=== PATIENT | female | born 1985 | race Caucasian/White ===

== ENCOUNTER 2023-08-28 22:21 | Emergency (ER) | payer SELFPAY ==
[~2023-08-28] VITALS: Ht 165.1 cm; Wt 80.0 kg
[2023-08-28] MEDS ORDERED: ACETAMINOPHEN 325MG TABLET PO ONE (22:45)
[2023-08-28 22:50] VITALS: PULSE 88; O2SAT 98
[2023-08-29 00:15] VITALS: BP 186/74; RESP 18
[2023-08-29] MEDS ORDERED: LIDOCAINE 5% PATCH TOP SCH (00:15)
[2023-08-29 00:30] VITALS: TEMP 98.3
[2023-08-29] MEDS ORDERED: ACETAMINOPHEN 325MG TABLET PO NR (00:30)
[2023-08-29] MEDS ORDERED: ACET-2708 MT (01:20)
[2023-08-29] MEDS ORDERED: BACL-141 MT (01:20)
[2023-08-29] MEDS ORDERED: LIDO700A15 TP (01:20)
== END 2023-08-29 02:38 | disposition home or self-care (01) ==
LOC: ER 22:21
DX: S13.4XXA Sprain of ligaments of cervical spine, initial encounter (principal); R07.89 Other chest pain; I10 Essential (primary) hypertension; M25.552 Pain in left hip; V49.49XA Driver injured in collision with other motor vehicles in traffic accident, initial encounter; Y93.89 Activity, other specified; Y92.89 Other specified places as the place of occurrence of the external cause; Y99.8 Other external cause status
CPT/HCPCS: 71045; 73502; 93005; 99284